=== PATIENT | male | born 1955 | race Caucasian/White ===

== ENCOUNTER 2022-07-16 14:03 | Inpatient (IN) | payer BC, OTHER ==
[~2022-07-16] VITALS: Ht 190.5 cm; Wt 105.2 kg
[2022-07-16 14:33] VITALS: BP_SYST 87
[2022-07-16 15:25] LABS: EOSINOPHILS # (AUTO) 0.3 K/uL (0.0-0.4); HEMOGLOBIN 8.4 g/dL (14.0-18.0); LYMPHOCYTES # (AUTO) 0.6 K/uL (1.0-5.5); LYMPHOCYTES % (AUTO) 15.9 % (20.5-51.5); MONOCYTES # (AUTO) 0.5 K/uL (0.0-1.0)
[2022-07-16 15:38] LABS: BASOPHILS % (AUTO) 0.6 % (0.0-2.0); EOSINOPHILS % (AUTO) 8.5 % (0.0-4.0); HEMATOCRIT 23.9 % (36-54); MEAN CORPUSCULAR HEMOGLOBIN 41 pg (27-31); MEAN CORPUSCULAR HGB CONC 35 % (32-36); MEAN CORPUSCULAR VOLUME 116 fL (79.0-98.0); NEUTROPHILS # (AUTO) 2.4 K/uL (1.8-7.7); RED BLOOD CELL COUNT(AUTO) 2.06 MIL/uL (4.2-6.2); RED CELL DISTRIBUTION WIDTH 13.7 % (9.0-15.0); WHITE BLOOD COUNT (AUTO) 3.9 K/uL (4.8-10.8)
[2022-07-16 15:39] LABS: BILIRUBIN,URINE NEGATIVE (NEGATIVE); BLOOD, URINE NEGATIVE (NEGATIVE); CLARITY/URINE CLEAR (CLEAR); COLOR,URINE YELLOW (YELLOW); GLUCOSE,URINE NEGATIVE (NEGATIVE); KETONES,URINE NEGATIVE (NEGATIVE); LEUKOCYTE ESTERASE ,URINE NEGATIVE (NEGATIVE); NITRITE, URINE NEGATIVE (NEGATIVE); PH,URINE 6.5 (5.0-8.0); PROTEIN URINE NEGATIVE (NEGATIVE); UROBILINOGEN,URINE 0.2 (0.2-1.0)
[2022-07-16 15:43] LABS: ANION GAP 6 (5-15); CHLORIDE 88 mmol/L (98-107); CREATININE 1.59 mg/dL (0.55-1.30); GLUCOSE 116 mg/dL (70-99); UREA NITROGEN, BLOOD 21 mg/dL (8-21)
[2022-07-16 15:56] LABS: ALANINE AMINOTRANSFERASE 24 U/L (12-78); ALBUMIN 2.2 g/dL (3.4-4.8); ASPARTATE AMINOTRANSFERASE 45 U/L (10-37); LACTATE DEHYDROGENASE 215 U/L (85-227); TOTAL BILIRUBIN 7.6 mg/dL (0.0-1.0)
[2022-07-16 16:07] LABS: GFR AFRICAN AMERICAN 56 mL/min (>90)
[2022-07-16] MEDS ORDERED: KCL 20 mEq in 100 mL (PREMIX) 100 ML IV ONE (16:15)
[2022-07-16] MEDS ORDERED: POTASSIUM CHLORIDE 20 MEQ/PKT PACKET PO ONE (16:15)
[2022-07-16 16:54] LABS: INR 1.8 (0.80-1.20); PROTHROMBIN TIME 17.2 SECS (9.5-12.5)
[2022-07-16] MEDS ORDERED: OXYCODONE/ACETAMINOPHEN 5-325 TABLET PO ONE (17:00)
[2022-07-16 17:12] LABS: PLATELET COUNT (AUTO) 71 K/uL (130-430)
[2022-07-16] MEDS ORDERED: RIFA550T5 PO (18:51)
[2022-07-16] MEDS ORDERED: PRO40 PO (18:51)
[2022-07-16] MEDS ORDERED: ATEN50TA PO (18:51)
[2022-07-16] MEDS ORDERED: SPIR100T5 PO (18:51)
[2022-07-16] MEDS ORDERED: FURO-149 PO (18:51)
[2022-07-16] MEDS ORDERED: TAMS-11 PO (18:51)
[2022-07-16] MEDS ORDERED: NS 500 ML IV ONE (19:45)
[2022-07-16] MEDS ORDERED: ALBUMIN HUMAN 25% 100 ML IV ONE (20:00)
[2022-07-16] MEDS ORDERED: MUPIROCIN 2% TOPICAL OINTMENT 22 GM NS PRN (21:30)
[2022-07-16] MEDS ORDERED: ONDANSETRON HCL 4 MG/2 ML VIAL IVP PRN (21:30)
[2022-07-16] MEDS ORDERED: DOCUSATE SODIUM 100 MG CAPSULE PO PRN (21:30)
[2022-07-16] MEDS ORDERED: MAGNESIUM SULFATE 50 ML IV PRN (21:30)
[2022-07-16] MEDS ORDERED: ACETAMINOPHEN 325 MG TABLET PO PRN (21:30)
[2022-07-16] MEDS ORDERED: NOREPINEPHRINE 4 MG/4 ML VIAL IV ONE (22:44)
[2022-07-16] MEDS ORDERED: NOREPINEPHRINE BITARTRATE 4 MG in D5W 246 ML IV PRN (22:45)
[2022-07-17] MEDS ORDERED: NOREPINEPHRINE 4 MG/4 ML VIAL IV ONE ×2 (04:13→13:30)
[2022-07-17 06:19] LABS: BASOPHILS % (AUTO) 0.4 % (0.0-2.0); EOSINOPHILS # (AUTO) 0.5 K/uL (0.0-0.4); EOSINOPHILS % (AUTO) 10.4 % (0.0-4.0); HEMOGLOBIN 7.9 g/dL (14.0-18.0); LYMPHOCYTES # (AUTO) 0.9 K/uL (1.0-5.5); LYMPHOCYTES % (AUTO) 17.5 % (20.5-51.5); MEAN CORPUSCULAR HEMOGLOBIN 41 pg (27-31); MEAN CORPUSCULAR HGB CONC 36 % (32-36); MEAN CORPUSCULAR VOLUME 114 fL (79.0-98.0); MONOCYTES # (AUTO) 0.6 K/uL (0.0-1.0); MONOCYTES % (AUTO) 11.6 % (1.7-9.3); NEUTROPHILS # (AUTO) 3.1 K/uL (1.8-7.7); NEUTROPHILS % (AUTO) 60.1 % (40.0-70.0); PLATELET COUNT (AUTO) 93 K/uL (130-430); RED CELL DISTRIBUTION WIDTH 13.9 % (9.0-15.0); WHITE BLOOD COUNT (AUTO) 5.2 K/uL (4.8-10.8)
[2022-07-17 06:29] LABS: ALBUMIN 2.2 g/dL (3.4-4.8); CALCIUM 7.8 mg/dL (8.4-11.0); CREATININE 1.28 mg/dL (0.55-1.30); TOTAL BILIRUBIN 10.1 mg/dL (0.0-1.0)
[2022-07-17] MEDS: POTASSIUM CHLORIDE 20 MEQ TAB.PRT.SR PO PRN (06:52)
[2022-07-17 07:00] LABS: HEMATOCRIT 21.8 % (36-54); RED BLOOD CELL COUNT(AUTO) 1.91 MIL/uL (4.2-6.2)
[2022-07-17] MEDS ORDERED: PANTOPRAZOLE SODIUM 40 MG TAB PO ONE (08:52)
[2022-07-17] MEDS: RIFAXIMIN 550 MG TABLET PO SCH (09:07)
[2022-07-17] MEDS: PANTOPRAZOLE SODIUM 40 MG TAB PO SCH (09:07)
[2022-07-17] MEDS ORDERED: LACTULOSE 20 GM/30 ML UDC ONE (09:19)
[2022-07-17] MEDS: LACTULOSE 20 GM/30 ML UDC PO SCH ×2 (09:22→19:57)
[2022-07-17] MEDS ORDERED: POTASSIUM CHLORIDE 20 MEQ TAB.PRT.SR PO ONE (10:30)
[2022-07-17] MEDS ORDERED: cefTRIAXone 1 GM IVPB PREMIX 50 ML IV ONE (12:00)
[2022-07-17] MEDS: cefTRIAXone 1 GM in D5W 50 ML IV SCH (12:00)
[2022-07-17] MEDS ORDERED: AZITHROMYCIN 500 MG/VIAL (ZITHROMAX) IV ONE (12:00)
[2022-07-17] MEDS ORDERED: POTASSIUM CHLORIDE 20 MEQ TAB.PRT.SR ONE (12:23)
[2022-07-17] MEDS: AZITHROMYCIN 500 MG in NS 250 ML IV SCH (12:35)
[2022-07-17] MEDS: NOREPINEPHRINE BITARTRATE 16 MG in NS 234 ML IV PRN (13:35)
[2022-07-17] MEDS: SPIRONOLACTONE 25 MG TABLET (ALDACTONE) PO SCH (21:00)
[2022-07-18] VITALS (35 sets, daily range): BP systolic 89–153
[2022-07-18] MEDS ORDERED: NOREPINEPHRINE 4 MG/4 ML VIAL IV ONE (04:11)
[2022-07-18] MEDS: NOREPINEPHRINE BITARTRATE 16 MG in NS 234 ML IV PRN ×3 (04:33→23:33)
[2022-07-18 07:47] LABS: ALBUMIN 2.3 g/dL (3.4-4.8); CALCIUM 8.1 mg/dL (8.4-11.0); CREATININE 1.49 mg/dL (0.55-1.30); TOTAL BILIRUBIN 13.7 mg/dL (0.0-1.0)
[2022-07-18 09:26] LABS: BASOPHILS % (AUTO) 0.3 % (0.0-2.0); EOSINOPHILS # (AUTO) 0.2 K/uL (0.0-0.4); EOSINOPHILS % (AUTO) 1.9 % (0.0-4.0); HEMOGLOBIN 8.4 g/dL (14.0-18.0); LYMPHOCYTES # (AUTO) 0.9 K/uL (1.0-5.5); LYMPHOCYTES % (AUTO) 9.6 % (20.5-51.5); MEAN CORPUSCULAR HEMOGLOBIN 41 pg (27-31); MEAN CORPUSCULAR HGB CONC 35 % (32-36); MEAN CORPUSCULAR VOLUME 116 fL (79.0-98.0); NEUTROPHILS # (AUTO) 7.3 K/uL (1.8-7.7); NEUTROPHILS % (AUTO) 77.2 % (40.0-70.0); PLATELET COUNT (AUTO) 109 K/uL (130-430); RED BLOOD CELL COUNT(AUTO) 2.06 MIL/uL (4.2-6.2); RED CELL DISTRIBUTION WIDTH 14.2 % (9.0-15.0); WHITE BLOOD COUNT (AUTO) 9.5 K/uL (4.8-10.8)
[2022-07-18] MEDS: PANTOPRAZOLE SODIUM 40 MG TAB PO SCH (10:24)
[2022-07-18] MEDS: SPIRONOLACTONE 25 MG TABLET (ALDACTONE) PO SCH ×2 (10:24→20:30)
[2022-07-18] MEDS: LACTULOSE 20 GM/30 ML UDC PO SCH ×3 (10:24→21:00)
[2022-07-18] MEDS: RIFAXIMIN 550 MG TABLET PO SCH (10:24)
[2022-07-18] MEDS: POTASSIUM CHLORIDE 20 MEQ TAB.PRT.SR PO PRN (10:25)
[2022-07-18] MEDS: cefTRIAXone 1 GM in D5W 50 ML IV SCH (10:26)
[2022-07-18] MEDS: AZITHROMYCIN 500 MG in NS 250 ML IV SCH (10:27)
[2022-07-18] MEDS ORDERED: NALOXONE HCL 0.4 MG/ML AMP (NARCAN) IVP PRN (13:15)
[2022-07-18] MEDS ORDERED: MORPHINE 2 MG/ML INJ. SYRINGE ONE (13:32)
[2022-07-18] MEDS: MORPHINE 2 MG/ML INJ. SYRINGE IVP PRN ×2 (13:45→18:17)
[2022-07-18] MEDS ORDERED: ALBUMIN HUMAN 25% 100 ML IV ONE (15:00)
[2022-07-18] MEDS: MIDODRINE HCL 5 MG TABLET (PROAMATINE) PO SCH ×2 (17:38→20:32)
[2022-07-19] VITALS (34 sets, daily range): BP systolic 90–144
[2022-07-19] MEDS: MORPHINE 2 MG/ML INJ. SYRINGE IVP PRN ×3 (01:05→15:04)
[2022-07-19 07:14] LABS: ALBUMIN 2.7 g/dL (3.4-4.8); CALCIUM 8.4 mg/dL (8.4-11.0); CREATININE 1.33 mg/dL (0.55-1.30); TOTAL BILIRUBIN 12.1 mg/dL (0.0-1.0)
[2022-07-19] MEDS: LACTULOSE 20 GM/30 ML UDC PO SCH ×2 (09:00→20:08)
[2022-07-19 09:42] LABS: BASOPHILS % (AUTO) 0.3 % (0.0-2.0); EOSINOPHILS # (AUTO) 0.4 K/uL (0.0-0.4); EOSINOPHILS % (AUTO) 6.3 % (0.0-4.0); HEMATOCRIT 22.9 % (36-54); HEMOGLOBIN 8.1 g/dL (14.0-18.0); LYMPHOCYTES # (AUTO) 0.8 K/uL (1.0-5.5); LYMPHOCYTES % (AUTO) 14.5 % (20.5-51.5); MEAN CORPUSCULAR HEMOGLOBIN 41 pg (27-31); MEAN CORPUSCULAR HGB CONC 35 % (32-36); MEAN CORPUSCULAR VOLUME 116 fL (79.0-98.0); MONOCYTES # (AUTO) 0.6 K/uL (0.0-1.0); MONOCYTES % (AUTO) 10.7 % (1.7-9.3); NEUTROPHILS # (AUTO) 3.9 K/uL (1.8-7.7); NEUTROPHILS % (AUTO) 68.2 % (40.0-70.0); PLATELET COUNT (AUTO) 75 K/uL (130-430); WHITE BLOOD COUNT (AUTO) 5.7 K/uL (4.8-10.8)
[2022-07-19 09:44] LABS: RED BLOOD CELL COUNT(AUTO) 1.98 MIL/uL (4.2-6.2)
[2022-07-19] MEDS: MIDODRINE HCL 5 MG TABLET (PROAMATINE) PO SCH ×3 (10:06→20:08)
[2022-07-19] MEDS: SPIRONOLACTONE 25 MG TABLET (ALDACTONE) PO SCH ×2 (10:06→20:08)
[2022-07-19] MEDS: PANTOPRAZOLE SODIUM 40 MG TAB PO SCH (10:06)
[2022-07-19] MEDS: RIFAXIMIN 550 MG TABLET PO SCH (10:06)
[2022-07-19] MEDS: POTASSIUM CHLORIDE 20 MEQ TAB.PRT.SR PO PRN (10:07)
[2022-07-19] MEDS: cefTRIAXone 1 GM in D5W 50 ML IV SCH (10:10)
[2022-07-19] MEDS: AZITHROMYCIN 500 MG in NS 250 ML IV SCH (10:10)
[2022-07-19] MEDS: NOREPINEPHRINE BITARTRATE 16 MG in NS 234 ML IV PRN (15:10)
[2022-07-19] MEDS ORDERED: SODIUM CHLORIDE 500 MG TABLET PO ONE (15:15)
[2022-07-19] MEDS: SODIUM CHLORIDE 500 MG TABLET PO SCH (20:08)
[2022-07-20] VITALS (24 sets, daily range): BP systolic 90–121
[2022-07-20] MEDS: MORPHINE 2 MG/ML INJ. SYRINGE IVP PRN ×3 (02:34→22:37)
[2022-07-20 07:05] LABS: ALBUMIN 2.4 g/dL (3.4-4.8); CALCIUM 8.3 mg/dL (8.4-11.0); CREATININE 1.13 mg/dL (0.55-1.30); TOTAL BILIRUBIN 11.5 mg/dL (0.0-1.0)
[2022-07-20 07:27] LABS: BASOPHILS % (AUTO) 0.4 % (0.0-2.0); EOSINOPHILS # (AUTO) 0.3 K/uL (0.0-0.4); EOSINOPHILS % (AUTO) 6.5 % (0.0-4.0); HEMOGLOBIN 7.2 g/dL (14.0-18.0); LYMPHOCYTES # (AUTO) 0.7 K/uL (1.0-5.5); MEAN CORPUSCULAR HEMOGLOBIN 41 pg (27-31); MEAN CORPUSCULAR HGB CONC 35 % (32-36); MEAN CORPUSCULAR VOLUME 115 fL (79.0-98.0); MONOCYTES # (AUTO) 0.6 K/uL (0.0-1.0); MONOCYTES % (AUTO) 11.6 % (1.7-9.3); NEUTROPHILS # (AUTO) 3.5 K/uL (1.8-7.7); NEUTROPHILS % (AUTO) 67.5 % (40.0-70.0); WHITE BLOOD COUNT (AUTO) 5.2 K/uL (4.8-10.8)
[2022-07-20 08:01] LABS: RED BLOOD CELL COUNT(AUTO) 1.78 MIL/uL (4.2-6.2)
[2022-07-20 08:03] LABS: HEMATOCRIT 20.5 % (36-54)
[2022-07-20] MEDS ORDERED: SODIUM CHLORIDE 500 MG TABLET ONE (08:12)
[2022-07-20] MEDS: LACTULOSE 20 GM/30 ML UDC PO SCH ×2 (09:00→20:42)
[2022-07-20] MEDS ORDERED: AMIODARONE HCL 450 MG in D5W 241 ML IV SCH (09:45)
[2022-07-20 10:10] LABS: PHOSPHORUS 2.9 mg/dL (2.7-4.5)
[2022-07-20] MEDS: SPIRONOLACTONE 25 MG TABLET (ALDACTONE) PO SCH ×2 (10:58→20:41)
[2022-07-20] MEDS: RIFAXIMIN 550 MG TABLET PO SCH (10:59)
[2022-07-20] MEDS: cefTRIAXone 1 GM in D5W 50 ML IV SCH (11:00)
[2022-07-20] MEDS: AZITHROMYCIN 500 MG in NS 250 ML IV SCH (11:01)
[2022-07-20] MEDS: POTASSIUM CHLORIDE 20 MEQ TAB.PRT.SR PO PRN (11:02)
[2022-07-20] MEDS: MIDODRINE HCL 5 MG TABLET (PROAMATINE) PO SCH ×3 (11:11→20:42)
[2022-07-20] MEDS: SODIUM CHLORIDE 500 MG TABLET PO SCH ×2 (11:12→20:42)
[2022-07-20] MEDS: PANTOPRAZOLE SODIUM 40 MG TAB PO SCH (11:12)
[2022-07-20] MEDS ORDERED: DIGOXIN 0.5 MG/2 ML AMP IVP ONE (11:45)
[2022-07-20 13:11] LABS: PLATELET COUNT (AUTO) 75 K/uL (130-430)
[2022-07-20] MEDS: NOREPINEPHRINE BITARTRATE 16 MG in NS 234 ML IV PRN (15:03)
[2022-07-21] VITALS (34 sets, daily range): BP systolic 90–135
[2022-07-21 06:40] LABS: CALCIUM 8.7 mg/dL (8.4-11.0); CREATININE 1.26 mg/dL (0.55-1.30)
[2022-07-21 08:16] LABS: BASOPHILS % (AUTO) 0.4 % (0.0-2.0); EOSINOPHILS # (AUTO) 0.6 K/uL (0.0-0.4); EOSINOPHILS % (AUTO) 7.8 % (0.0-4.0); HEMATOCRIT 22.3 % (36-54); HEMOGLOBIN 7.9 g/dL (14.0-18.0); LYMPHOCYTES # (AUTO) 1.2 K/uL (1.0-5.5); LYMPHOCYTES % (AUTO) 16.2 % (20.5-51.5); MEAN CORPUSCULAR HEMOGLOBIN 41 pg (27-31); MEAN CORPUSCULAR HGB CONC 35 % (32-36); MEAN CORPUSCULAR VOLUME 117 fL (79.0-98.0); MONOCYTES % (AUTO) 14.2 % (1.7-9.3); NEUTROPHILS # (AUTO) 4.5 K/uL (1.8-7.7); PLATELET COUNT (AUTO) 102 K/uL (130-430); RED CELL DISTRIBUTION WIDTH 13.9 % (9.0-15.0); WHITE BLOOD COUNT (AUTO) 7.3 K/uL (4.8-10.8)
[2022-07-21] MEDS: SPIRONOLACTONE 25 MG TABLET (ALDACTONE) PO SCH ×2 (08:31→20:10)
[2022-07-21] MEDS: LACTULOSE 20 GM/30 ML UDC PO SCH ×2 (08:33→20:10)
[2022-07-21] MEDS: MIDODRINE HCL 5 MG TABLET (PROAMATINE) PO SCH ×3 (08:33→20:10)
[2022-07-21] MEDS: PANTOPRAZOLE SODIUM 40 MG TAB PO SCH (08:34)
[2022-07-21] MEDS: SODIUM CHLORIDE 500 MG TABLET PO SCH ×2 (08:35→20:10)
[2022-07-21] MEDS: RIFAXIMIN 550 MG TABLET PO SCH (08:36)
[2022-07-21] MEDS: MORPHINE 2 MG/ML INJ. SYRINGE IVP PRN ×3 (08:37→20:12)
[2022-07-21] MEDS: POTASSIUM CHLORIDE 20 MEQ TAB.PRT.SR PO PRN (08:38)
[2022-07-21 09:16] LABS: RED BLOOD CELL COUNT(AUTO) 1.91 MIL/uL (4.2-6.2)
[2022-07-21 09:17] LABS: NEUTROPHILS % (AUTO) 61.4 % (40.0-70.0)
[2022-07-21] MEDS: cefTRIAXone 1 GM in D5W 50 ML IV SCH (10:01)
[2022-07-21] MEDS: AZITHROMYCIN 500 MG in NS 250 ML IV SCH (10:31)
[2022-07-21] MEDS ORDERED: DIGOXIN 0.5 MG/2 ML AMP IVP ONE (10:45)
[2022-07-22] VITALS (18 sets, daily range): BP systolic 82–113
[2022-07-22 06:49] LABS: BASOPHILS % (AUTO) 0.4 % (0.0-2.0); EOSINOPHILS # (AUTO) 0.4 K/uL (0.0-0.4); EOSINOPHILS % (AUTO) 7.9 % (0.0-4.0); HEMOGLOBIN 7.3 g/dL (14.0-18.0); LYMPHOCYTES # (AUTO) 0.7 K/uL (1.0-5.5); LYMPHOCYTES % (AUTO) 15.8 % (20.5-51.5); MEAN CORPUSCULAR HEMOGLOBIN 41 pg (27-31); MEAN CORPUSCULAR HGB CONC 36 % (32-36); MEAN CORPUSCULAR VOLUME 115 fL (79.0-98.0); MONOCYTES # (AUTO) 0.6 K/uL (0.0-1.0); MONOCYTES % (AUTO) 13.2 % (1.7-9.3); NEUTROPHILS # (AUTO) 2.9 K/uL (1.8-7.7); NEUTROPHILS % (AUTO) 62.7 % (40.0-70.0); PLATELET COUNT (AUTO) 63 K/uL (130-430); RED CELL DISTRIBUTION WIDTH 14.1 % (9.0-15.0); WHITE BLOOD COUNT (AUTO) 4.6 K/uL (4.8-10.8)
[2022-07-22 07:22] LABS: RED BLOOD CELL COUNT(AUTO) 1.77 MIL/uL (4.2-6.2)
[2022-07-22 07:25] LABS: HEMATOCRIT 20.5 % (36-54)
[2022-07-22] MEDS: MORPHINE 2 MG/ML INJ. SYRINGE IVP PRN ×3 (07:32→20:29)
[2022-07-22 07:40] LABS: CALCIUM 8.4 mg/dL (8.4-11.0); CREATININE 1.09 mg/dL (0.55-1.30); DIGOXIN 0.6 ng/mL (0.80-2.00)
[2022-07-22] MEDS: SPIRONOLACTONE 25 MG TABLET (ALDACTONE) PO SCH ×2 (09:27→20:26)
[2022-07-22] MEDS: RIFAXIMIN 550 MG TABLET PO SCH (09:27)
[2022-07-22] MEDS: PANTOPRAZOLE SODIUM 40 MG TAB PO SCH (09:27)
[2022-07-22] MEDS: SODIUM CHLORIDE 500 MG TABLET PO SCH ×2 (09:27→20:25)
[2022-07-22] MEDS: LACTULOSE 20 GM/30 ML UDC PO SCH ×2 (09:34→20:31)
[2022-07-22] MEDS: MIDODRINE HCL 5 MG TABLET (PROAMATINE) PO SCH ×3 (09:34→20:25)
[2022-07-22] MEDS: cefTRIAXone 1 GM in D5W 50 ML IV SCH (11:58)
[2022-07-22] MEDS ORDERED: DIGOXIN 0.5 MG/2 ML AMP IVP ONE (12:45)
[2022-07-22] MEDS ORDERED: DILTIAZEM HCL 30 MG TABLET PO ONE ×2 (12:45→13:00)
[2022-07-22] MEDS: DILTIAZEM HCL 30 MG TABLET PO SCH (20:26)
[2022-07-23] VITALS: BP_SYST 103
[2022-07-23] MEDS: MORPHINE 2 MG/ML INJ. SYRINGE IVP PRN ×2 (02:44→08:25)
[2022-07-23 07:17] LABS: CALCIUM 8.4 mg/dL (8.4-11.0); CREATININE 1.15 mg/dL (0.55-1.30)
[2022-07-23 07:44] LABS: BASOPHILS % (AUTO) 0.3 % (0.0-2.0); EOSINOPHILS # (AUTO) 0.4 K/uL (0.0-0.4); HEMOGLOBIN 7.4 g/dL (14.0-18.0); LYMPHOCYTES # (AUTO) 0.8 K/uL (1.0-5.5); LYMPHOCYTES % (AUTO) 12.4 % (20.5-51.5); MEAN CORPUSCULAR HEMOGLOBIN 41 pg (27-31); MEAN CORPUSCULAR HGB CONC 35 % (32-36); MEAN CORPUSCULAR VOLUME 119 fL (79.0-98.0); MONOCYTES # (AUTO) 0.7 K/uL (0.0-1.0); MONOCYTES % (AUTO) 12.1 % (1.7-9.3); NEUTROPHILS # (AUTO) 4.2 K/uL (1.8-7.7); NEUTROPHILS % (AUTO) 68.2 % (40.0-70.0); PLATELET COUNT (AUTO) 79 K/uL (130-430); RED CELL DISTRIBUTION WIDTH 14.9 % (9.0-15.0); WHITE BLOOD COUNT (AUTO) 6.2 K/uL (4.8-10.8)
[2022-07-23] MEDS: DILTIAZEM HCL 30 MG TABLET PO SCH (08:27)
[2022-07-23] MEDS: MIDODRINE HCL 5 MG TABLET (PROAMATINE) PO SCH ×2 (08:28→15:37)
[2022-07-23] MEDS: PANTOPRAZOLE SODIUM 40 MG TAB PO SCH (08:28)
[2022-07-23] MEDS: LACTULOSE 20 GM/30 ML UDC PO SCH (08:29)
[2022-07-23] MEDS: SPIRONOLACTONE 25 MG TABLET (ALDACTONE) PO SCH (08:37)
[2022-07-23] MEDS: RIFAXIMIN 550 MG TABLET PO SCH (08:37)
[2022-07-23 08:43] LABS: RED BLOOD CELL COUNT(AUTO) 1.79 MIL/uL (4.2-6.2)
[2022-07-23 08:44] LABS: HEMATOCRIT 21.2 % (36-54)
[2022-07-23] MEDS ORDERED: DILT30TA35 PO (08:45)
[2022-07-23 10:15] LABS: DIGOXIN 0.6 ng/mL (0.80-2.00)
[2022-07-23] MEDS: cefTRIAXone 1 GM in D5W 50 ML IV SCH (10:31)
[2022-07-23] MEDS: SODIUM CHLORIDE 500 MG TABLET PO SCH (10:41)
[2022-07-23 11:15] VITALS: BP_SYST 103
[2022-07-23 12:00] VITALS: BP_SYST 103
[2022-07-23 15:10] VITALS: BP_SYST 121
[2022-07-23 16:00] VITALS: BP_SYST 111
[2022-07-23] MEDS ORDERED: DIGOXIN 0.5 MG/2 ML AMP IVP ONE (18:00)
[2022-07-23 20:28] VITALS: BP_SYST 107
[2022-07-24] MEDS ORDERED: RIFAXIMIN 550 MG TABLET PO SCH (09:00)
== END 2022-07-23 21:22 | disposition home health service (06) | DRG 193 ==
LOC: SED 14:03 → STU 19:43 → SIC 07-17 21:31 → SMU 07-22 09:40 → SIC 07-22 10:45 → SMU 07-22 19:37 → STU 07-22 19:47
PROVIDERS: ADMIT Family Medicine; ATTEND Family Medicine
DX: J18.9 Pneumonia, unspecified organism (principal); E43 Unspecified severe protein-calorie malnutrition; J96.01 Acute respiratory failure with hypoxia; N17.0 Acute kidney failure with tubular necrosis; R57.8 Other shock; E87.1 Hypo-osmolality and hyponatremia; E87.20 Acidosis, unspecified; J90 Pleural effusion, not elsewhere classified; I48.20 Chronic atrial fibrillation, unspecified; K70.30 Alcoholic cirrhosis of liver without ascites; B19.20 Unspecified viral hepatitis C without hepatic coma; F10.10 Alcohol abuse, uncomplicated; Z85.05 Personal history of malignant neoplasm of liver; Z20.822 Contact with and (suspected) exposure to COVID-19; D53.9 Nutritional anemia, unspecified; Z88.5 Allergy status to narcotic agent; E80.6 Other disorders of bilirubin metabolism; E87.6 Hypokalemia; E87.8 Other disorders of electrolyte and fluid balance, not elsewhere classified; Z68.29 Body mass index [BMI] 29.0-29.9, adult; F12.10 Cannabis abuse, uncomplicated
CPT/HCPCS: 36415; 71045; 76604; 76700-TC; 80048; 80053; 80162; 81003; 82140; 82550; 83605; 83615; 83735; 83880; 84100; 84484; 85025; 85379; 85384; 85610-TC; 85730-TC; 87040; 87081; 87086; 93005; 93306; 93970; 97112-GP; 97116-GP; 97163-GP; 97530-GP; 99291; G0378; G0482; J0456; J0696; J1160; J2270; J2405; J3480; J7030; J7050; J7060; P9046